=== PATIENT | female | born 1990 | race Caucasian/White ===

== ENCOUNTER 2018-02-10 20:47 | Emergency (ER) | payer OTHER ==
[~2018-02-10] VITALS: Ht 157.5 cm; Wt 109.8 kg
[2018-02-10] MEDS ORDERED: FOLIC ACID0.4 MG (20:54)
== END 2018-02-11 17:03 | disposition home or self-care (01) ==
LOC: ER 20:47
DX: O03.9 Complete or unspecified spontaneous abortion without complication (principal)